=== PATIENT | male | born 1965 | race Two or more races ===

== ENCOUNTER 2019-01-17 18:13 | Emergency (ER) | payer OTHER ==
[~2019-01-17] VITALS: Ht 172.7 cm; Wt 115.7 kg
[~2019-01-17 18:13] MED LIST: ASPIR 8181 MG; CADUET 10 MG/101 TAB; COZAAR25 MG; FENOFIBRATE40 MG; LOSARTAN-HCTZ1 EAC2; LOVAZA1 G; SMZ-TMP DS 800-1 TAB PO; TUSSI PRES-B L120 M1 PO; ZITHROMAX TRI-500 MG PO
== END 2019-01-17 19:47 | disposition home or self-care (01) ==
LOC: ER 18:13
DX: S42.251A Displaced fracture of greater tuberosity of right humerus, initial encounter for closed fracture (principal); W18.39XA Other fall on same level, initial encounter; Y93.64 Activity, baseball; Y92.39 Other specified sports and athletic area as the place of occurrence of the external cause; Y99.8 Other external cause status

== ENCOUNTER 2019-11-21 13:14 | Emergency (ER) | payer OTHER ==
[~2019-11-21] VITALS: Ht 172.7 cm; Wt 120.2 kg
== END 2019-11-21 18:02 | disposition home or self-care (01) ==
LOC: ER 13:14
DX: J06.9 Acute upper respiratory infection, unspecified (principal)

== ENCOUNTER 2019-12-25 13:19 | Emergency (ER) | payer OTHER ==
[~2019-12-25] VITALS: Ht 172.7 cm; Wt 120.2 kg
== END 2019-12-25 17:28 | disposition home or self-care (01) ==
LOC: ER 13:19
DX: B34.9 Viral infection, unspecified (principal)

== ENCOUNTER 2021-10-13 12:39 | Emergency (ER) | payer OTHER ==
[~2021-10-13] VITALS: Ht 172.7 cm; Wt 113.4 kg
== END 2021-10-13 18:06 ==
LOC: ER 12:39
DX: B34.9 Viral infection, unspecified (principal); J06.9 Acute upper respiratory infection, unspecified; I10 Essential (primary) hypertension; Z20.822 Contact with and (suspected) exposure to COVID-19